=== PATIENT | female | born 1945 | race Hispanic/Latino ===

== ENCOUNTER → 2019-01-11 | Outpatient (CLI) | payer OTHER | END | disposition home or self-care (01) | LOC: OIH 08:51 | PROVIDERS: ATTEND Family Medicine | DX: R91.8 Other nonspecific abnormal finding of lung field (principal) | CPT/HCPCS: 71046 ==

== ENCOUNTER → 2019-01-17 | Outpatient (CLI) | payer OTHER ==
[~2019-01-17] MED LIST: IOHEXOL-350 50ML VIAL IV ONE
== END | disposition home or self-care (01) ==
LOC: RAH 13:52
PROVIDERS: ATTEND Family Medicine
DX: I31.3 Pericardial effusion (noninflammatory) (principal); R04.2 Hemoptysis; R91.8 Other nonspecific abnormal finding of lung field; R59.1 Generalized enlarged lymph nodes; I51.7 Cardiomegaly
CPT/HCPCS: 71270; Q9967

== ENCOUNTER 2019-02-01 08:13 | Day surgery (SDC) | payer OTHER ==
[2019-02-01] VITALS (12 sets, daily range): BP systolic 117–184; BP diastolic 38–71
[2019-02-01 08:46] LABS: HEMATOCRIT 31.5 % (36-48); MEAN CORPUSCULAR HEMOGLOBIN 26.9 pg (27.0-33.0); MEAN CORPUSCULAR HGB CONC 32.2 g/dL (32.0-36.0); MEAN CORPUSCULAR VOLUME 83.4 fL (79-99); NUCLEATED RED BLOOD CELLS 0.1 % (0.0-0.19); PLATELET COUNT (AUTO) 403 K/uL (130-400); RED BLOOD CELL COUNT(AUTO) 3.77 MIL/uL (4.00-5.50); RED CELL DISTRIBUTION WIDTH 16.4 % (11.0-15.5); WHITE BLOOD COUNT (AUTO) 13.3 K/uL (4.8-10.8)
[2019-02-01 08:58] LABS: INR 1.09 (0.85-1.15); PARTIAL THROMBOPLASTIN TIME 29.9 SEC (26.3-35.5); PROTHROMBIN TIME 11.4 SEC (9.6-11.6)
[2019-02-01] MEDS ORDERED: SODIUM CHLORIDE 0.9% 1000ML 1,000 ML IV ONE (09:54)
[2019-02-01] MEDS ORDERED: FENTANYL CITRATE PF 50 MCG/1 ML 2ML VIAL ONE (10:47)
--- NOTE | 2019-02-01 11:25 | NUR ---
PROCEDURE POST CT SCAN SHOWS RT PNEUMOTHORAX. DR Sherley GREER'S OFFICE NOTIFIED AND SPOKE WITH ASHLEY LYLE. RT PNEUMOTHORAX REPORTED AND REPEAT CHEST XRAYS WELL.
--- NOTE | 2019-02-01 11:30 | NUR ---
CT GD RT LUNG BX PROCEDURE PERFORMED BY DR Mango LANTIGUA. PUNCTURE SITE RT POSTERIOR BACK AND PATIENT TOLERATED PROCEDURE WELL. SPECIMEN X 3_ COLLECTED AND SENT TO LAB. END OF PROCEDURE AT 1107. BIOPSY NEEDLE REMOVED AND DRESSING APPLIED. NO BLEEDING NOTED. POST CT SCAN SHOWED SMALL RT PNEUMOTHORAX. POST CHEST RAY ORDERED NOW AND IN 4HRS. REPORT GIVEN TO [facility] POSADA AND PATIENT TRANSPORTED TO DAY PATIENT RM 8 VIA BED AT 1130. AAO X3 WITH NO C/O PAIN. 02 3L NC ON TRANSPORT.
--- NOTE | 2019-02-01 11:40 | NUR ---
PATIENT RETURNED PATIENT BROUGHT BACK FROM RADIOLOGY DEPARTMENT BY [facility]EN[facility] MAY. PATIENT AAOX3,RESPIRATIONS UNLABORED AND VITAL SIGNS STABLE. DRESSING TO RIGHT UPPER BACK IS DRY AND INTACT, NO DRAINAGE/BLEEDING OR REDNESS NOTED. FAMILY PRESENT PRESENT IN ROOM. SIDERAILS UP X 2, BED IN LOWEST POSITION, CALL LEWIS IN REACH.
--- NOTE | 2019-02-01 11:55 | NUR ---
SITE CHECK DRESSING TO RIGHT UPPER BACK IS DRY AND INTACT, NO DRAINAGE/BLEEDING OR REDNESS NOTED.PATIENT DENIES ANY PAIN AT THIS TIME. FAMILY PRESENT PRESENT IN ROOM. SIDERAILS UP X 2, BED IN LOWEST POSITION, CALL LEWIS IN REACH.
--- NOTE | 2019-02-01 11:55 | NUR ---
PATIENT RETURNED PATIENT BROUGHT BACK FROM RADIOLOGY DEPARTMENT BY [facility]EN[facility] MAY. PATIENT AAOX3,RESPIRATIONS UNLABORED AND VITAL SIGNS STABLE. DRESSING TO RIGHT UPPER BACK IS DRY AND INTACT, NO DRAINAGE/BLEEDING OR REDNESS NOTED. FAMILY PRESENT PRESENT IN ROOM. SIDERAILS UP X 2, BED IN LOWEST POSITION, CALL LEWIS IN REACH. Addendum: 02/01/19 at 1444 by ALBINO DELUCA RN RN DELETE NOTE; WRONG TIME
--- NOTE | 2019-02-01 16:40 | NUR ---
PATIENT DISCHARGE INSTRUCTIONS INSTRUCTIONS GIVEN TO PATIENT'S DAUGHTER AND EXPLAINED TO DAUGHTER TO TAKE PATIENT TO ER IF SHE IS EXPERIENCING SHORTNESS OF BREATH AND/OR CHEST PAIN. PATIENT'S DAUGHTER VERBALIZED UNDERSTANDING. HANDOUTS PROVIDED AND ALL QUESTIONS/CONCERNS WERE ANSWERED AND ADDRESSED.
--- NOTE | 2019-02-01 16:50 | NUR ---
PATIENT DISCAHRGED PATIENT DISCHARGED FROM FACILITY VIA WHEELCHAIR BY ELIZABETH KRAMER. PATIENT ASSISTED INTO PRIVATE VEHICLE THAT WAS DRIVEN BY HER DAUGHTER.
== END 2019-02-01 16:50 | disposition home or self-care (01) ==
LOC: DAH 08:13
PROVIDERS: ATTEND Family Medicine
DX: R91.8 Other nonspecific abnormal finding of lung field (principal); C34.31 Malignant neoplasm of lower lobe, right bronchus or lung; E11.51 Type 2 diabetes mellitus with diabetic peripheral angiopathy without gangrene; E11.42 Type 2 diabetes mellitus with diabetic polyneuropathy; I10 Essential (primary) hypertension; E78.49 Other hyperlipidemia; E66.01 Morbid (severe) obesity due to excess calories; I25.2 Old myocardial infarction; G47.00 Insomnia, unspecified; Z79.899 Other long term (current) drug therapy; Z79.84 Long term (current) use of oral hypoglycemic drugs; Z90.710 Acquired absence of both cervix and uterus; Z98.890 Other specified postprocedural states; Z83.3 Family history of diabetes mellitus; Z82.49 Family history of ischemic heart disease and other diseases of the circulatory system; Z68.35 Body mass index [BMI] 35.0-35.9, adult
CPT/HCPCS: 32405; 36415; 71045 ×2; 77012; 85027; 85610; 85730; 88305; A4215; A4221; A4222; A4223; A4663; J3010; J7030

== ENCOUNTER → 2020-12-16 | Outpatient (CLI) | payer OTHER | END | disposition home or self-care (01) | LOC: SHCH 11:08 | PROVIDERS: ATTEND Internal Medicine Cardiovascular Disease | DX: R60.9 Edema, unspecified (principal) | CPT/HCPCS: 93970 ==